=== PATIENT | female | born 1950 | race Caucasian/White ===

== ENCOUNTER → 2018-03-09 | Outpatient (CLI) | payer MEDICARE, BC ==
[~2018-03-09] MED LIST: LEVSOD100; PARO20
== END | disposition home or self-care (01) ==
LOC: PLD 08:16 → LAB SHORT 08:16
DX: N95.0 Postmenopausal bleeding (principal)
CPT/HCPCS: 88305

== ENCOUNTER → 2019-04-19 | Outpatient (CLI) | payer MEDICARE, BC ==
[2019-04-21 15:07] LABS: HPV 16 Negative (Negative); HPV 18 Negative (Negative); HPV OTHER HR TYPES Negative (Negative)
== END | disposition home or self-care (01) ==
LOC: LAB SHORT 18:53 → LAB 18:53
PROVIDERS: Nurse Practitioner Women's Health
DX: Z12.4 Encounter for screening for malignant neoplasm of cervix (principal); Z91.89 Other specified personal risk factors, not elsewhere classified
CPT/HCPCS: 87624; G0123

== ENCOUNTER 2019-05-16 13:38 | Day surgery (SDC) | payer MEDICARE, BC ==
[~2019-05-16] VITALS: Ht 165.1 cm; Wt 55.4 kg
[~2019-05-16 13:38] MED LIST changes: +ALEN70; +BIMATOPROST5 ML; +GLUCOSAMINE1000 MG; +MERIBIN5 MG; +PROG100; +Vivelle-Dot1 EAC1
--- NOTE | 2019-05-16 16:41 | NUR ---
05/16/19 1641 Daniel Johnson SCOPOLAMINE TRANSDERMAL PATCH APPLIED PER DR DALE DUPREE.
--- NOTE | 2019-05-16 16:51 | NUR ---
05/16/19 [id number] Jacquelyn Morales PATIENT TRANSFERS TO CHAIR FROM [facility] WITH NO ASSISTANCE, NO NAUSEA NO DIZZINESS. SHE ALSO STATES NO PAIN. IS BROUGHT BACK AND PATIENT IS DRINKING WATER AND STATES SHE IS FEELING GOOD.
== END 2019-05-16 17:22 | disposition home or self-care (01) ==
LOC: ORSCSDS 13:38
PROVIDERS: Obstetrics & Gynecology Gynecology
PROC: 0UB98ZX Excision of Uterus, Via Natural or Artificial Opening Endoscopic, Diagnostic (ICD-10-PCS; principal; 2019-05-16 15:30)
DX: N95.1 Menopausal and female climacteric states (principal); N84.0 Polyp of corpus uteri; I10 Essential (primary) hypertension; E03.9 Hypothyroidism, unspecified; E11.9 Type 2 diabetes mellitus without complications; Z79.899 Other long term (current) drug therapy
CPT/HCPCS: 88305; 93005; 93010; J0690; J1100; J2250; J2310; J2370; J2405; J2704; J3010

== ENCOUNTER 2021-10-27 08:40 | Day surgery (SDC) | payer MEDICARE, BC ==
[~2021-10-27] VITALS: Ht 165.1 cm; Wt 53.1 kg
[~2021-10-27 08:40] MED LIST changes: +ALBU90OI INH; +Lopressor 25 mg25 MG PO; +PROGESTERONE200 M1 PO
[2021-10-27] MEDS ORDERED: ZOLP5 (08:56)
[2021-10-27] MEDS ORDERED: MULVITA (08:57)
[2021-10-27] MEDS ORDERED: Calcium Acetat667 MG (08:57)
--- NOTE | 2021-10-27 09:29 | NUR ---
[facility]21 0929 [facility] RIGHT SIDE OF FACE.
== END 2021-10-27 11:18 | disposition home or self-care (01) ==
LOC: ORSCSDS 08:40
PROVIDERS: Student in an Organized Health Care Education/Training Program
PROC: 0DBH8ZX Excision of Cecum, Via Natural or Artificial Opening Endoscopic, Diagnostic (ICD-10-PCS; principal; 2021-10-27 10:00)
PROC: 0DBL8ZX Excision of Transverse Colon, Via Natural or Artificial Opening Endoscopic, Diagnostic (ICD-10-PCS; principal; 2021-10-27 10:00)
PROC: 0DBK8ZX Excision of Ascending Colon, Via Natural or Artificial Opening Endoscopic, Diagnostic (ICD-10-PCS; principal; 2021-10-27 10:00)
DX: R19.5 Other fecal abnormalities (principal); D12.3 Benign neoplasm of transverse colon; D12.0 Benign neoplasm of cecum; D12.2 Benign neoplasm of ascending colon; K63.89 Other specified diseases of intestine; I10 Essential (primary) hypertension; E03.9 Hypothyroidism, unspecified; Z79.899 Other long term (current) drug therapy
CPT/HCPCS: 88305; J2704; J7120

== ENCOUNTER 2022-01-29 09:52 | Day surgery (SDC) | payer MEDICARE, BC ==
[~2022-01-29] VITALS: Ht 162.6 cm; Wt 53.3 kg
[~2022-01-29 09:52] MED LIST changes: +Calcium Acetat667 MG; +MULVITA; +ZOLP5
== END 2022-01-29 11:59 | disposition home or self-care (01) ==
LOC: ORSCSDS 09:52
DX: Z86.010 Personal history of colon polyps (principal); R19.5 Other fecal abnormalities; K59.09 Other constipation; D12.3 Benign neoplasm of transverse colon; D12.2 Benign neoplasm of ascending colon; D12.4 Benign neoplasm of descending colon; K63.89 Other specified diseases of intestine; K57.30 Diverticulosis of large intestine without perforation or abscess without bleeding; I10 Essential (primary) hypertension; E03.9 Hypothyroidism, unspecified; Z79.899 Other long term (current) drug therapy
CPT/HCPCS: 88305; J2704; J7120

== ENCOUNTER 2023-02-15 11:41 | Emergency (ER) | payer MEDICARE, BC ==
[~2023-02-15] VITALS: Ht 162.6 cm; Wt 54.4 kg
[~2023-02-15 11:41] MED LIST changes: +ZOLP5 PO
[2023-02-15 11:53] VITALS: BP 144/87
[2023-02-15] MEDS ORDERED: CEPH500 PO (12:29)
[2023-02-15] MEDS ORDERED: Norco 5-325 Ta1 EACH PO (13:28)
== END 2023-02-15 13:00 | disposition home or self-care (01) ==
LOC: ER 11:41
DX: S62.631B Displaced fracture of distal phalanx of left index finger, initial encounter for open fracture (principal); W27.8XXA Contact with other nonpowered hand tool, initial encounter; Z23 Encounter for immunization; Z88.5 Allergy status to narcotic agent; Z91.030 Bee allergy status; Z91.09 Other allergy status, other than to drugs and biological substances; Z79.899 Other long term (current) drug therapy; Z79.890 Hormone replacement therapy
CPT/HCPCS: 12001; 73140; 90471; 90715; 99283-25

== ENCOUNTER 2023-07-22 09:47 | Day surgery (SDC) | payer MEDICARE, BC ==
[~2023-07-22] VITALS: Ht 160 cm; Wt 54.9 kg
[~2023-07-22 09:47] MED LIST changes: +CEPH500 PO; +Lactated Ringer's 1,000 ML IV ONE; +Norco 5-325 Ta1 EACH PO; +propofoL 50 ML IV ONE
[2023-07-22] MEDS ORDERED: SERT100 (10:13)
[2023-07-22] MEDS ORDERED: ESTRADIOL1 EAC2 (10:14)
[2023-07-22] MEDS ORDERED: Lactated Ringer's 1,000 ML IV ONE (10:30)
[2023-07-22 16:04] VITALS: BP 139/84
== END 2023-07-22 11:39 | disposition home or self-care (01) ==
LOC: ORSCSDS 09:47
PROVIDERS: Specialist
PROC: 0DJD8ZZ Inspection of Lower Intestinal Tract, Via Natural or Artificial Opening Endoscopic (ICD-10-PCS; principal; 2023-07-22 11:15)
DX: R19.4 Change in bowel habit (principal); Z86.010 Personal history of colon polyps; F41.9 Anxiety disorder, unspecified; K57.30 Diverticulosis of large intestine without perforation or abscess without bleeding; K64.8 Other hemorrhoids; I10 Essential (primary) hypertension; E07.9 Disorder of thyroid, unspecified; Z79.899 Other long term (current) drug therapy
CPT/HCPCS: J2704; J7120

== ENCOUNTER → 2024-08-28 | Outpatient (CLI) | payer MEDICARE, BC ==
[~2024-08-28] MED LIST changes: +ESTRADIOL1 EAC2; -Lactated Ringer's 1,000 ML IV ONE; +SERT100; -propofoL 50 ML IV ONE
[2024-08-29 13:37] LABS: Stool Occult Bld Immuno 1 Negative (NEGATIVE)
[2024-08-29 15:32] LABS: Adenovirus F 40/41 Not Detected (NOT DETECT); Astrovirus Not Detected (NOT DETECT); Campylobacter Sp Not Detected (NOT DETECT); Cryptosporidium Not Detected (NOT DETECT); Cyclospora Cayetanensis Not Detected (NOT DETECT); E. Coli O157 Not Detected (NOT DETECT); Entamoeba Histolytica Not Detected (NOT DETECT); Enteroaggregative E. coli-EAEC Not Detected (NOT DETECT); Enteropathogenic E. coli-EPEC Not Detected (NOT DETECT); Enterotoxigenic E. coli-ETEC Not Detected (NOT DETECT); Giardia Lamblia Not Detected (NOT DETECT); Norovirus GI/GII Not Detected (NOT DETECT); Plesiomonas Shigelloides Not Detected (NOT DETECT); Rotavirus A Not Detected (NOT DETECT); Salmonella Sp Not Detected (NOT DETECT); Sapovirus Not Detected (NOT DETECT); Shiga Toxin-prod E. coli-STEC Not Detected (NOT DETECT); Shigella/Enteroin E. coli-EIEC Not Detected (NOT DETECT); Vibrio Cholerae Not Detected (NOT DETECT); Vibrio Sp Not Detected (NOT DETECT); Yersinia Enterocolitica Not Detected (NOT DETECT)
[2024-08-31 17:19] LABS: CALPROTECTIN,FECAL 82 ug/g (<=49)
[2024-09-05 01:55] LABS: OVA AND PARASITE,FECAL INTERP Negative (Negative)
== END ==
LOC: LAB 10:00 → LAB SHORT 10:00
PROVIDERS: Family Medicine
DX: R19.7 Diarrhea, unspecified (principal)
CPT/HCPCS: 83993; 87177; 87209; 87507; 89055; G0328